=== PATIENT | female | born 1960 | race Caucasian/White ===

== ENCOUNTER 2016-10-06 12:18 | Inpatient (IN) | payer BC, MEDICARE ==
--- NOTE | ~2016-10-06 | HP ---
Unit #: [id number] #: [id number] Patient: GEORGE TUBBS [id number] [address] [address] [id number] E MR#: [id number] NAME: GEORGE TUBBS. ROOM: Age: 56 Sex: F Admission Date: 10/06/2016 : 1960 Attending Physician: Dorina Nowak M.D. Primary Care Physician: Parish Wood M.D. HISTORY AND PHYSICAL CHIEF COMPLAINT Low back pain. HISTORY OF PRESENT ILLNESS The patient is a 56-year-old female with past medical history of throat cancer, GERD, hypothyroidism, depression, hypertension, COPD, brought to the emergency room for the low back pain. The patient stated the patient has been having low back pain for the last three weeks and is gradually worsening to the point that she cannot move today. The patient had multiple admissions in the past with hyponatremia. The patient's sodium was found to be 121 and is being admitted for the above reasons. Denies any fever, chills, nausea or vomiting. PAST MEDICAL HISTORY 1. History of hyponatremia. 2. COPD. 3. History of throat cancer, status post radiation and chemotherapy. 4. Hypothyroidism. 5. Depression. 6. Hypertension. 7. History of small bowel obstruction. PAST SURGICAL HISTORY 1. D and C. 2. Tubal ligation. 3. Hernia repair. 4. Lap-Band surgery. 5. Sinus surgery. 6. Tracheostomy. 7. Open reduction of small bowel obstruction. HOME MEDICATIONS 1. Levoxyl. 2. Protonix. 3. Hydrocodone. 4. Compazine. 5. Phenergan. 6. Phenergan. 7. Klonopin. 8. Sodium. 9. Acetaminophen. ALLERGIES No known drug allergies. Unit #: [id number] #: [id number] Patient: GEORGE TUBBS SOCIAL HISTORY The patient lives with her and son. She quit smoking three years ago. She has a 33-rmjo-lmcx history of smoking. There is no alcohol use. FAMILY HISTORY Positive for diabetes. REVIEW OF SYSTEMS A 14-point review of systems performed and only pertinent positive findings are described above, remaining are negative. PHYSICAL EXAMINATION VITAL SIGNS: Temperature 98, pulse 95, respiratory rate 15, blood pressure 150/102, saturating 95% on 2 liters nasal cannula. GENERAL: Patient is lying on the bed not in acute distress. HEENT: Atraumatic, normocephalic. Pupils equal, round, and reactive to light and accommodation. Mucous membranes are dry. NECK: Supple. LUNGS: Decreased air entry at the bases. HEART: Regular rate and rhythm. ABDOMEN: Soft, positive bowel sounds. EXTREMITIES: No cyanosis, no clubbing. NEUROLOGIC: Alert, awake, oriented. DIAGNOSTIC STUDIES LABORATORY: Sodium 121, potassium 3.8, chloride 81, bicarb 32, glucose 99, creatinine 0.3. UA shows negative bacteria, negative leukocytes, negative nitrites. INR 1. WBC 9.8, hemoglobin 10.7, hematocrit 34.6, platelets 230. ASSESSMENT AND PLAN 1. Weakness. 2. Back pain. 3. Hyponatremia. PLAN 1. Admit patient as inpatient. 2. Continue with fluid restriction. 3. Renal consult with Dr. Dimas as he has seen in the past. 4. Repeat the labs again in the morning. 5. Patient had x-ray of the pelvis and lumbar spine that shows no acute fractures. Degenerative changes. 6. Further recommendations will follow. Dictated by Crystal Tineo/veronica TD: 10/06/2016 18:18 JOB #: [id number] Unit #: [id number] #: [id number] Patient: GEORGE TUBBS HISTORY AND PHYSICAL Page 1 of 1 X CATA LLOYD MD X HISTORY AND PHYSICAL
--- NOTE | ~2016-10-06 | MR113 ---
[facility] A Service of [facility] RADIOLOGY TEXT RESULTS PATIENT: GEORGE TUBBS LOCATION: [facility] 327- : 56 UNIT #: [id number] AGE: [address]: Criss Chaves MD SEX: F ORDER DR: [id number] [facility] [address] [place], [place] [address] [id number] I MR#: [id number] Acc #: [id number] NAME: GEORGE TUBBS. : 1960 SEX: F STUDY DATE/TIME: 10/07/2016 13:27 UNIT: [address] ROOM: [facility] STUDY DESCRIPTION: MR Lumbar Wo Contrast Attending Physician: Criss Chaves M.D. Ordering Physician: Criss Chaves M.D. Primary Care Physician: Parish Wood M.D. MRI CENTER REPORT This report is preliminary unless electronic signature is present. REVISED REPORT SEE ADDENDUM EXAM MRI of the lumbar spine without contrast dated 10/07/2016. COMPARISON Lumbosacral plain films dated 10/06/2016. No prior CT or MR of this region. HISTORY Low back pain for the last 3 weeks, unable to move. History of prior fall. Patient also has a history of throat carcinoma. FINDINGS Multisequence, multiplanar imaging of the lumbar spine was obtained without contrast. Motion artifact is noted in multiple images involving multiple sequences, limiting evaluation. This study is evaluated after giving allowances to motion artifact. Vertebral body heights and alignment are preserved. Degenerative disc disease is seen at L1-2 and L4-5. Conus terminates at T12-L1. Signal of conus and cauda equina are within normal limits. Pre- and paravertebral soft tissues do not demonstrate any significant abnormality. L1-2: Concentric disc bulge with borderline size canal. No significant neural foraminal narrowing. L2-3: Mild disc bulge with borderline size canal. No neural foraminal narrowing. Minimal bilateral facet change. L3-4: Concentric disc bulge with mild bilateral facet changes. Mild inferior bilateral neural foraminal narrowing is seen with borderline size canal. [facility] A Service of [facility] RADIOLOGY TEXT RESULTS PATIENT: GEORGE TUBBS LOCATION: [facility] 327-01 : 56 UNIT #: [id number] AGE: [address]: Criss Chaves MD SEX: F ORDER DR: L4-5: Concentric disc bulge with moderate right and moderate to severe left facet hypertrophic changes with joint fluid. There is probably a less than 1 cm synovial cyst/inflammatory tissue in the posterior aspect of the left facet joint. Severe canal stenosis, moderate bilateral lateral recess stenosis and moderate bilateral neural foraminal narrowing are present, worse on the left. L5-S1: Mild disc bulge without canal stenosis or neural foraminal narrowing. SACRUM: Bone edema is associated with bilateral sacral ala, worse on the left when compared to the right. With the motion artifact, it is difficult to clearly evaluate for an obvious fracture line. Suspicious fracture lines are probably present in bilateral S1. IMPRESSION 1. Sacral edema is noted in both sides at the level of the sacral ala. In the setting of trauma, it could be related to fracture or insufficiency injury. Given the motion, it is limited in evaluation. CT can be considered depending on management needs for evaluation of bony details like fracture. 2. Degenerative changes are at multiple levels, relatively worse at L4-5 with severe canal stenosis. Bilateral lateral recess stenosis and neural foraminal narrowing are present. Dictated by... Danuta Yao M.D. CPR/psc TD: 10/08/2016 22:14 JOB #: [id number] ADDENDUM EXAM MRI lumbar spine without contrast dated 10/07/2016. ADDENDUM Attempts are made to contact Dr. Criss Chaves at 3:05 p.m. on 10/08/16. Dr. Somers was the on-call physician covering for Dr. Chaves. As he said that he was not aware that this is his patient, I called the patient's nurse, Roxanna and discussed the findings with her, asking her to let the treating [facility] A Service of [facility] RADIOLOGY TEXT RESULTS PATIENT: GEORGE TUBBS LOCATION: [facility] 327-01 : 56 UNIT #: [id number] AGE: [address]: Criss Chaves MD SEX: F ORDER DR: physician know and to call me for questions. Subsequently, Dr. Cooley called me at 4:25 p.m. on 10/08/2016 as he was the one taking care of this patient. JOB #: [id number] Dictated by... Danuta Yao M.D. THIS IS AN ELECTRONICALLY VERIFIED REPORT Danuta Yao M.D. at 10/12/2016 3:32 PM CPR/psc TD: 10/08/2016 23:57 JOB #: [id number] CC: Edilia/tip Please Delete MRI CENTER REPORT Page 1 of 1 COPY
--- NOTE | ~2016-10-06 | DS ---
Unit #: [id number] #: [id number] Patient: GEORGE TUBBS [id number] [address] [address] [id number] I MR#: [id number] NAME: GEORGE TUBBS. ROOM: 327 Age: 56 Sex: F Admission Date: 10/06/2016 : 1960 Discharge Date: 10/10/2016 Attending Physician: Criss Chaves M.D. Primary Care Physician: Parish Wood M.D. DISCHARGE SUMMARY REASON FOR ADMISSION Intractable back pain. HISTORY OF PRESENT ILLNESS/HOSPITAL COURSE The patient is a 56-year-old female with underlying history of throat cancer, status post radiation and/or further treatment with resultant voice hoarseness, GERD, hypothyroidism, depression, hypertension, COPD, severe anxiety disorder, who presented secondary to intractable back pain. Apparently, she had fell awkwardly down the stairs. She has had frequent falls at home. She was unable to ambulate, brought in by family secondary to above. She was also noted to have a sodium of 121. In regard to her hyponatremia, consultation was placed to Dr. Winston and associates who followed the patient through her hospital course. She was maintained on appropriate medical management of the same. Today her sodium currently stands at 124, potassium 3.4, bicarbonate 32, chloride 83. Secondary to intractable low-back pain, patient underwent a MRI of lumbar spine without contrast as well as CT lumbar without contrast. On her MRI, findings were consistent with sacral edema at the level of sacral ala. In the setting of trauma, it could be related to fracture or insufficiency injury. There was limited evaluation. CT was recommended at that point in time. It was done and is detailed below. Degenerative changes were also noted, worse at L4-L5 with severe canal stenosis. Multiple disc protrusions were also noted. On her CT lumbar spine without contrast as performed on October 08, 2016: Once again, afwuitih-nx-myrhzx bilateral lateral recess stenosis, qaueeetj-bk-fzuaxe left and moderate right neural foraminal narrowing was also noted. Subtle nondisplaced fracture at the L5. Transverse fracture could not be ruled out. Secondary to these findings, we placed consultation to Dr. Suh and associates. Dr. Gibson stated that he wished for the patient to be transferred to [facility] for further evaluation. Therefore, appropriate arrangements will be made for the patient to be transferred to [facility] for ongoing care. At this present time, she is unable to ambulate. Therefore, discharge home was not a possibility. Spine evaluation was recommended and therefore, patient will be transitioned to [facility] for ongoing care. Unit #: [id number] #: [id number] Patient: GEORGE TUBBS FINAL DISCHARGE DIAGNOSES 1. Intractable back pain. 2. Inability to ambulate. 3. Severe immobility syndrome. 4. Hyponatremia. 5. Chronic obstructive pulmonary disease. 6. Throat cancer, status post radiation and chemotherapy. 7. Hypothyroidism. 8. Depression. 9. Hypertension. 10. Severe bilateral foraminal canal narrowing and/or stenosis. 11. Questionable sacral edema, secondary to "traumatic fracture." 12. Significant disc protrusions and/or abnormal MRI. FINAL DISCHARGE MEDICATIONS 1. Prednisone 5 mg p.o. q.a.m. 2. Prednisone 2.5 mg p.o. nightly. Note, patient is currently receiving prednisone secondary to adrenal insufficiency. 3. Effexor 75 mg p.o. b.i.d. 4. Compazine 10 mg p.o. q.6 p.r.n. 5. Klonopin 0.5 mg p.o. nightly. 6. Lasix 20 mg p.o. b.i.d. 7. Lopressor 50 mg p.o. b.i.d. 8. Aspirin 325 mg p.o. daily. 9. Lortab 7.5/325 one tab p.o. q.4 p.r.n. 10. Vitamin B12 at 1000 mcg IM q. week. DISCHARGE CONDITION Stable. DISCHARGE DISPOSITION [facility] for ongoing care. Dictated by... Crystal Kidd/sonia TD: 10/10/2016 11:00 JOB #: [id number] DISCHARGE SUMMARY Page 1 of 1 X Criss Chaves MD X DISCHARGE SUMMARY
--- NOTE | ~2016-10-06 | CR219 ---
[facility] A Service of [facility] & [facility] RADIOLOGY TEXT RESULTS PATIENT: GEORGE TUBBS LOCATION: [facility] : 56 UNIT #: [id number] AGE: [address]: Dorina Nowak MD SEX: F ORDER DR: [id number] [facility] [address] [place], [place] [address] [id number] E MR#: [id number] Acc #: [id number] NAME: GEORGE TUBBS : 1960 SEX: F STUDY DATE/TIME: 10/06/2016 14:02 UNIT: [facility] ROOM: STUDY DESCRIPTION: CR Sacrum and Coccyx Min 2 Vie Attending Physician: Dorina Nowak M.D. Ordering Physician: Dorina Nowak M.D. Primary Care Physician: Parish Wood M.D. MEDICAL IMAGING REPORT This report is preliminary unless electronic signature is present EXAM Sacrum and coccyx 3 views INDICATIONS Tailbone pain after falling today. COMPARISON STUDIES No comparisons. FINDINGS There is no evidence for a displaced fracture. Right hip arthroplasty is noted. There is some degenerative change of the lower lumbar spine and left hip. IMPRESSION No evidence for a displaced fracture. Dictated by... Janes Key M.D. THIS IS AN ELECTRONICALLY VERIFIED REPORT Janes Key M.D. at 10/06/2016 6:11 PM ARS/pcl TD: 10/06/2016 16:53 JOB #: [id number] MEDICAL IMAGING REPORT Page 1 of 1 COPY
--- NOTE | ~2016-10-06 | CT98 ---
[facility] A Service of [facility] & [facility] RADIOLOGY TEXT RESULTS PATIENT: GEORGE TUBBS LOCATION: [facility] 327- : 56 UNIT #: [id number] AGE: [address]: Criss Chaves MD SEX: F ORDER DR: [id number] [facility] [address]. [place], [place] [address] [id number] I MR#: [id number] Acc #: [id number] NAME: GEORGE TUBBS. : 1960 SEX: F STUDY DATE/TIME: 10/08/2016 17:31 UNIT: [address] ROOM: [facility] STUDY DESCRIPTION: CT Lumbar Spine Wo Cont Attending Physician: Criss Chaves M.D. Ordering Physician: Criss Chaves M.D. Primary Care Physician: Parish Wood M.D. MEDICAL IMAGING REPORT This report is preliminary unless electronic signature is present EXAM CT of the lumbar spine without contrast dated 10/08/2016. COMPARISON MRI lumbar spine without contrast dated 10/07/2016. HISTORY Low back pain for 3 weeks. Unable to move. Status post fall 3 weeks ago down the stairs. Right hip replacement [address] of the lumbar spine was obtained without contrast as per the protocol. Images were obtained in the axial plane followed by sagittal and coronal reformats. This CT exam was performed with one or more of the following radiation dose reduction techniques: Automatic exposure control, adjustment of mA and/or kV according to patient size, and iterative reconstruction. Lumbar vertebral body heights and alignment are relatively preserved. Degenerative disc disease is at multiple levels, which have been described in the MRI of the lumbar spine. Bilateral sacral alar fractures are noted which is comminuted and relatively worse on the left. Nondisplaced predominantly. Fracture lines are close to the SI joint. No significant adjacent hematoma could be discerned. Degenerative changes are noted involving the discs and the facet joints as described in the MRI lumbar spine study. It is relatively worse at L4-5 with disc osteophyte complex, severe canal stenosis, severe bilateral facet hypertrophic changes, aebnstyz-mj-kpsjir bilateral lateral recess stenosis, tyydzesg-ey-lgdklo left and moderate right neural foraminal narrowing. There is mild cortical irregularity noted along the anterior aspect of the STS. [facility] A Service of [facility] RADIOLOGY TEXT RESULTS PATIENT: GEORGE TUBBS LOCATION: [facility] 327-01 : 56 UNIT #: [id number] AGE: [address]: Criss Chaves MD SEX: F ORDER DR: left L5 transverse process. A subtle nondisplaced fracture at this level cannot be completely excluded in the current images. Mild edema in this region cannot be excluded on MRI. IMPRESSION 1. Bilateral sacral ala fractures are noted with comminution in the left side. The fracture lines which run parallel to the SI joints bilaterally are more prominent in the left. 2. Mild cortical irregularity is noted along the anterior aspect of the left L5 transverse process. Subtle fracture in this region is suspected. Mild edema cannot be excluded on the MRI. It is nondisplaced, without any significant adjacent hematoma. 3. There are degenerative changes noted at multiple levels of the lumbar spine, mild. It is worst at L4-5 where it is severe as described above. Dictated by... Danuta Yao M.D. THIS IS AN ELECTRONICALLY VERIFIED REPORT Danuta Yao M.D. at 10/09/2016 8:43 PM CPR/psc TD: 10/09/2016 02:53 JOB #: [id number] MEDICAL IMAGING REPORT Page 1 of 1 COPY
--- NOTE | ~2016-10-06 | CR181 ---
[facility] A Service of [facility] & [facility] RADIOLOGY TEXT RESULTS PATIENT: GEORGE TUBBS LOCATION: [facility] : 56 UNIT #: [id number] AGE: [address]: Dorina Nowak MD SEX: F ORDER DR: [id number] [facility] [address] [place], [place] [address] [id number] E MR#: [id number] Acc #: [id number] NAME: GEORGE TUBBS : 1960 SEX: F STUDY DATE/TIME: 10/06/2016 14:00 UNIT: [facility] ROOM: STUDY DESCRIPTION: CR Lumbar Spine 2 or 3 Views Attending Physician: Dorina Nowak M.D. Ordering Physician: Dorina Nowak M.D. Primary Care Physician: Parish Wood M.D. MEDICAL IMAGING REPORT This report is preliminary unless electronic signature is present EXAM Lumbar spine, 3 views. INDICATION Low back pain today after falling. COMPARISON No comparisons are available. FINDINGS Vertebral body heights and alignment are maintained. There is mild multilevel degenerative disc space disease. Lower lumbar spine facet arthropathy. Vascular calcifications. Right hip arthroplasty. IMPRESSION Mild lumbar spine degenerative change. Dictated by... Janes Key M.D. THIS IS AN ELECTRONICALLY VERIFIED REPORT Janes Key M.D. at 10/06/2016 6:11 PM NICOLE/rebeca TD: 10/06/2016 16:55 JOB #: [id number] MEDICAL IMAGING REPORT Page 1 of 1 COPY
[~2016-10-06 12:18] MED LIST: ACETAMINOPHEN PO; ALLERGY INJECTION; ALPRAZOLAM PO; CELEXA PO; CELEXA20 MG; COMPAZINE10 M1 PO; COMPAZINE10 M3; FISH OIL 1,0001 CAP PO; GLUCOSAMINE CHRONDR; HCTZ PO; HYDROCODON-ACE1 EAC5 PO; IBUPROFEN PO; KCL PO; KLONOPIN0.5 M1; LEVOXYL88 MCG PO; LISINOPRIL1 GM; LORTAB 5-325 M1 EACH PO; MULTI-VITAMIN1 TAB; PHENERGAN12.5 MG PO; PREDNISONE5 MG; PREVACID PO; PRINIVIL10 MG PO; PROTONIX PO; SODIUM; SODIUM PO; SYMBICORT INH; SYNTHROID PO; TIROSINT88 MCG; VASOTEC PO; VERAMYST; WELLBUTRIN SR150 MG; WELLBUTRIN XL PO; [UNRECOGNIZED DRUG - OTHER]; [UNRECOGNIZED DRUG - OTHER]; [UNRECOGNIZED DRUG - REMARK]; [UNRECOGNIZED DRUG - REMARK]
[2016-10-06 13:36] LABS: BASOPHIL% 0.2 % (0-2.5); EOSINOPHIL% 0.1 % (0.0-7.0); HEMATOCRIT 34.6 % (35.0-45.0); HEMOGLOBIN 10.7 gm/dL (12.0-16.0); LYMPHOCYTE# 0.1 X10e3 (1.0-3.5); LYMPHOCYTE% 1.4 % (17.0-45.0); MEAN CELL VOLUME 90.9 FL (83-96); MEAN CORPUSCULAR HEMOGLOBIN 28.2 PG (28-34); MEAN PLATELET VOLUME 8.7 FL (6.5-11.5); MONOCYTE% 10.2 % (3.0-12.0); NEUTROPHIL# 8.6 X10e3 (1.5-7.1); NEUTROPHIL% 88.1 % (40-75); PLATELET COUNT 230 X10e3 (140-420); RED CELL DISTRIBUTION WIDTH 20.4 % (11.0-15.5); WHITE BLOOD COUNT 9.8 X10e3 (4.0-10.5)
[2016-10-06 13:39] LABS: DIFF IND NO
[2016-10-06 13:42] LABS: PROTHROMBIN TIME (PATIENT) 10.6 SECONDS (10.0-11.7)
[2016-10-06 13:44] LABS: URINE SOURCE CLEAN CATCH
[2016-10-06 13:54] LABS: URINE APPEARANCE CLEAR; URINE BILIRUBIN NEG (NEG); URINE BLOOD NEG (NEG); URINE COLOR YELLOW; URINE GLUCOSE NEG (NEG); URINE KETONE NEG (NEG); URINE LEUKOCYTE ESTERASE NEG (NEG); URINE NITRATE NEG (NEG); URINE PROTEIN NEG (NEG); URINE SPECIFIC GRAVITY 1.006 (1.003-1.035); URINE UROBILINOGEN 0.2 MG/DL (NEG)
[2016-10-06 14:00] LABS: CULTURE INDICATED? NO
[2016-10-06 14:05] LABS: CALCIUM SERUM 8.6 mg/dL (8.4-10.2); CARBON DIOXIDE 32 mmol/L (22-31); CHLORIDE 81 mmol/L (100-111); CREATININE SERUM 0.3 mg/dL (0.6-1.4); GLOM FILT RATE Estimated 126.3 mL/min (>60); GLUCOSE FASTING 99 mg/dL (70-110); POTASSIUM 3.8 mmol/L (3.5-5.1)
[2016-10-06 14:11] LABS: BLOOD UREA NITROGEN <5 mg/dL (9-23); BUN/CREATININE RATIO 16.66
[2016-10-06 14:12] LABS: SODIUM 121 mmol/L (135-145)
[2016-10-06] MEDS ORDERED: PATIENT'S PHARMACY (16:25)
[2016-10-06] MEDS ORDERED: SODIUM CHLORIDE1 GM PO (17:25)
[2016-10-06] MEDS ORDERED: B12 INJ (17:27)
[2016-10-06] MEDS ORDERED: COMPAZINE10 M2 PO (17:28)
[2016-10-06] MEDS ORDERED: VENLAFAXINE HCL75 MG PO (17:28)
[2016-10-06] MEDS ORDERED: PREDNISONE5 M1 PO (17:29)
[2016-10-06] MEDS ORDERED: PREDNISONE2.5 MG PO (17:29)
[2016-10-06] MEDS ORDERED: BAYER ASPIRIN325 M1 PO (17:30)
[2016-10-06] MEDS ORDERED: LORTAB 7.5-3251 EACH PO (17:30)
[2016-10-06] MEDS ORDERED: AUGMENTIN PO (17:31)
[2016-10-06] MEDS ORDERED: VITAMIN D1000 UNIT PO (17:31)
[2016-10-06] MEDS ORDERED: KLONOPIN0.5 M3 PO (22:13)
[2016-10-07 06:06] LABS: HEMATOCRIT 30.9 % (35.0-45.0); HEMOGLOBIN 9.7 gm/dL (12.0-16.0); MEAN CELL VOLUME 91.8 FL (83-96); MEAN CORPUSCULAR HEMOGLOBIN 28.8 PG (28-34); MEAN CORPUSCULAR HGB CONC 31.3 g/dL (30-36); MEAN PLATELET VOLUME 8.7 FL (6.5-11.5); RED BLOOD COUNT 3.36 X10e (3.90-5.30); RED CELL DISTRIBUTION WIDTH 20.4 % (11.0-15.5); WHITE BLOOD COUNT 6.4 X10e3 (4.0-10.5)
[2016-10-07 06:49] LABS: BLOOD UREA NITROGEN 5 mg/dL (9-23); CALCIUM SERUM 8.1 mg/dL (8.4-10.2); CARBON DIOXIDE 31 mmol/L (22-31); CHLORIDE 86 mmol/L (100-111); GLUCOSE FASTING 88 mg/dL (70-110); POTASSIUM 3.5 mmol/L (3.5-5.1)
[2016-10-07 06:52] LABS: BUN/CREATININE RATIO 16.66; CREATININE SERUM <0.3 mg/dL (0.6-1.4); GLOM FILT RATE Estimated UNABLE TO CALCULATE mL/min (>60)
[2016-10-07 06:56] LABS: SODIUM 124 mmol/L (135-145)
[2016-10-08 06:20] LABS: HEMATOCRIT 34.4 % (35.0-45.0); HEMOGLOBIN 10.5 gm/dL (12.0-16.0); MEAN CELL VOLUME 92.7 FL (83-96); MEAN CORPUSCULAR HEMOGLOBIN 28.4 PG (28-34); MEAN CORPUSCULAR HGB CONC 30.7 g/dL (30-36); MEAN PLATELET VOLUME 8.8 FL (6.5-11.5); RED BLOOD COUNT 3.71 X10e (3.90-5.30); RED CELL DISTRIBUTION WIDTH 20.5 % (11.0-15.5); WHITE BLOOD COUNT 6.6 X10e3 (4.0-10.5)
[2016-10-08 07:28] LABS: CALCIUM SERUM 8.1 mg/dL (8.4-10.2); CREATININE SERUM 0.4 mg/dL (0.6-1.4); GLOM FILT RATE Estimated 114.8 mL/min (>60)
[2016-10-09 06:57] LABS: HEMATOCRIT 31.7 % (35.0-45.0); HEMOGLOBIN 9.9 gm/dL (12.0-16.0); MEAN CELL VOLUME 91.5 FL (83-96); MEAN CORPUSCULAR HEMOGLOBIN 28.6 PG (28-34); MEAN CORPUSCULAR HGB CONC 31.3 g/dL (30-36); MEAN PLATELET VOLUME 8.2 FL (6.5-11.5); RED BLOOD COUNT 3.47 X10e (3.90-5.30); RED CELL DISTRIBUTION WIDTH 21.2 % (11.0-15.5); WHITE BLOOD COUNT 5.7 X10e3 (4.0-10.5)
[2016-10-09 07:57] LABS: BLOOD UREA NITROGEN 12 mg/dL (9-23); CALCIUM SERUM 8.2 mg/dL (8.4-10.2); CARBON DIOXIDE 33 mmol/L (22-31); CHLORIDE 81 mmol/L (100-111); CREATININE SERUM <0.3 mg/dL (0.6-1.4); GLOM FILT RATE Estimated UNABLE TO CALCULATE mL/min (>60); GLUCOSE FASTING 106 mg/dL (70-110); POTASSIUM 4.2 mmol/L (3.5-5.1)
[2016-10-09 08:05] LABS: SODIUM 122 mmol/L (135-145)
[2016-10-10 05:36] LABS: HEMATOCRIT 32.2 % (35.0-45.0); HEMOGLOBIN 10.1 gm/dL (12.0-16.0); MEAN CORPUSCULAR HEMOGLOBIN 28.4 PG (28-34); MEAN CORPUSCULAR HGB CONC 31.3 g/dL (30-36); MEAN PLATELET VOLUME 7.9 FL (6.5-11.5); RED BLOOD COUNT 3.54 X10e (3.90-5.30); RED CELL DISTRIBUTION WIDTH 21.4 % (11.0-15.5); WHITE BLOOD COUNT 6.3 X10e3 (4.0-10.5)
[2016-10-10 07:00] LABS: CALCIUM SERUM 8.1 mg/dL (8.4-10.2); CREATININE SERUM 0.3 mg/dL (0.6-1.4); GLOM FILT RATE Estimated 126.3 mL/min (>60); POTASSIUM 3.4 mmol/L (3.5-5.1)
== END 2016-10-10 22:16 | DRG 552 ==
LOC: CED 12:18 → C3A PCU 16:45 → CEDOF 16:45 → CED 19:04 → C3A PCU 19:06 → CEDOF 19:06 → C3A PCU 10-07 06:00
PROVIDERS: Emergency Medicine; Family Medicine; Internal Medicine
DX: M54.5 Low back pain (principal); E87.1 Hypo-osmolality and hyponatremia; I10 Essential (primary) hypertension; M62.3 Immobility syndrome (paraplegic); J44.9 Chronic obstructive pulmonary disease, unspecified; E03.9 Hypothyroidism, unspecified; F32.9 Major depressive disorder, single episode, unspecified; R60.9 Edema, unspecified; R93.8 Abnormal findings on diagnostic imaging of other specified body structures; K21.9 Gastro-esophageal reflux disease without esophagitis; W10.9XXA Fall (on) (from) unspecified stairs and steps, initial encounter; Y92.009 Unspecified place in unspecified non-institutional (private) residence as the place of occurrence of the external cause; Z98.51 Tubal ligation status; Z98.84 Bariatric surgery status; Z87.891 Personal history of nicotine dependence; Z83.3 Family history of diabetes mellitus; Z85.89 Personal history of malignant neoplasm of other organs and systems; Z92.3 Personal history of irradiation; Z92.21 Personal history of antineoplastic chemotherapy; E66.9 Obesity, unspecified; Z68.21 Body mass index [BMI] 21.0-21.9, adult
CPT/HCPCS: 36415; 72100; 72131; 72148; 72220; 80048; 81003; 83036; 85025; 85027; 85610; 92610; 94760; 96361; 96374; 96375; 97110; 97116; 97163; 97165; 97530; 99285; G8996-GN; G8997-GN; G8998-GN; J0360; J1650; J2270; J2405; J2930